=== PATIENT | male | born 1990 | race African-American/Black ===

== ENCOUNTER 2016-10-19 15:48 | Emergency (ER) | payer OTHER ==
[2016-10-19 16:09] VITALS: BP 152/102; PULSE 74; RESP 18; O2SAT 98
--- NOTE | 2016-10-19 16:17 | EDPHY ---
H & P Stated Complaint: c/o rt lower molar tooth pain inc over last week- has Dental apt 10/24 HPI/ROS: HPI CHIEF COMPLAINT: Dental pain HISTORY OF PRESENT ILLNESS: This patient very pleasant 18-year-old male no significant medical history presents emergency room with right lower jaw dental pain. No swelling no fever. States it has been going on for approximately a month on and off. He has a dental appointment coming up. States the pain is throbbing aching right lower jaw. Current pain 11/19. Past Medical History: No medical history Past Surgical History: No surgical history Social History: Denies daily use of drugs alcohol tobacco products Family History: Noncontributory ROS REVIEW OF SYSTEMS: A comprehensive 10 point review of systems is otherwise negative aside from elements mentioned in the history of present illness. Exam Constitutional triage nursing summary reviewed, vital signs reviewed, awake/ alert. Eyes normal conjunctivae and sclera, EOMI, PERRLA. HENT oropharynx: Normal exam, no gumline abscess, no signs of Larry's. normal inspection, atraumatic, moist mucus membranes, no epistaxis, neck supple / no meningismus, no raccoon eyes. Respiratory clear to auscultation bilaterally, normal breath sounds, no respiratory distress, no wheezing. Cardiovascular rate normal, regular rhythm, no murmur, no edema, distal pulses normal. Gastrointestinal soft, non-tender, no rebound, no guarding, normal bowel sounds, no distension, no pulsatile mass. Genitourinary no CVA tenderness. Musculoskeletal no midline vertebral tenderness, full range of motion, no calf swelling, no tenderness of extremities, no meningismus, good pulses, neurovascularly intact. Skin pink, warm, & dry, no rash, skin atraumatic. Neurologic awake, alert and oriented x 3, AAOx3, moves all 4 extremities equally, motor intact, sensory intact, CN II-XII intact, normal cerebellar, normal vision, normal speech. Psychiatric normal mood/affect. Heme/Lymph/Immune no lymphadenopathy. Differential Diagnosis: Includes but is not limited to in a particular order, dental decay, dental fracture, apical infection, pulpitis, no signs of Larry's Medical Decision Making: Plan for this patient amoxicillin prescription, [place] for pain control ibuprofen. Follow up with dentist. Source: Patient - Personal History Current Tetanus Diphtheria and Acellular Pertussis (TDAP): Yes - Medical/Surgical History Other PMH: htn - Social History Smoking Status: Never smoked Constitutional: Initial Vital Signs Temperature (C) 36.6 C 10/19/16 16:06 Heart Rate 74 10/19/16 16:06 Respiratory Rate 18 10/19/16 16:06 Blood Pressure 152/102 H 10/19/16 16:06 O2 Sat (%) 98 10/19/16 16:06 O2 Delivery Mode Room Air Allergies/Adverse Reactions: No Known Allergies Allergy (Unverified 09/29/14 18:26) Home Medications: Medication Instructions Recorded Lisinopril 09/29/14 Amoxicillin 500 mg PO TID 7 Days 10/19/16 Hydrocodone/APAP 5/325 [[place] 1 - 2 tab PO Q4H PRN #14 tab 10/19/16 5/325] Ibuprofen [Motrin (*)] 800 mg PO Q6-8PRN #14 tab 10/19/16 Departure - Departure Disposition: Home, Routine, Self-Care Clinical Impression: Pain, dental Condition: Good Instructions: Toothache (ED) Referrals: JESSICA BHARDWAJ [Primary Care Provider] - As per Instructions Prescriptions: Amoxicillin 500 mg PO TID 7 Days Hydrocodone/APAP 5/325 [[place] 5/325] 1 - 2 tab PO Q4H PRN #14 tab PRN Reason: Pain, Moderate Ibuprofen [Motrin (*)] 800 mg PO Q6-8PRN #14 tab
[2016-10-19 17:57] VITALS: TEMP 98.2
== END 2016-10-19 16:34 | disposition home or self-care (01) ==
LOC: CED 15:48
DX: K08.89 Other specified disorders of teeth and supporting structures (principal); I10 Essential (primary) hypertension